=== PATIENT | female | born 1960 | race Caucasian/White ===

== ENCOUNTER → 2017-09-16 | Outpatient (CLI) | payer OTHER | LOC: CIMAGING 13:11 | PROVIDERS: ATTEND Internal Medicine Geriatric Medicine | DX: M89.9 Disorder of bone, unspecified (principal) | CPT/HCPCS: 76641-PO; G0204 ==

== ENCOUNTER → 2018-04-07 | Outpatient (CLI) | payer OTHER | LOC: FIMAGING 13:33 | PROVIDERS: ATTEND Nurse Practitioner Family | DX: R60.9 Edema, unspecified (principal) ==

== ENCOUNTER → 2018-07-28 | Outpatient (CLI) | payer OTHER | LOC: CIMAGING 09:47 | PROVIDERS: ATTEND Nurse Practitioner Family | DX: Z12.31 Encounter for screening mammogram for malignant neoplasm of breast (principal) ==

== ENCOUNTER → 2018-08-28 | Outpatient (CLI) | payer OTHER | LOC: CIMAGING 11:10 | PROVIDERS: ATTEND Nurse Practitioner Family | DX: M77.31 Calcaneal spur, right foot (principal) | CPT/HCPCS: 73650-PO ==

== ENCOUNTER → 2018-09-01 | Outpatient (CLI) | payer OTHER | LOC: FIMAGING 11:47 | PROVIDERS: ATTEND Nurse Practitioner Family | DX: M79.661 Pain in right lower leg (principal) ==